=== PATIENT | male | born 1970 | race Caucasian/White ===

== ENCOUNTER 2021-03-18 13:18 | Outpatient (REF) | payer BC, SELFPAY ==
[2021-03-18 18:45] LABS: HGB 14.3 g/dL (13.5-17.5); MCH 28.4 pg (27.0-33.0); MCHC 32.5 % (32.0-36.0); MCV 87.3 fL (80-95); MPV 10.8 fL (8.0-11.0); Platelet Count 211 10^3/uL (130-400); RBC 5.04 10^6/uL (4.36-5.78); RDW-SD 41.4 fL; WBC 5.87 10^3/uL (4.4-10.8)
[2021-03-18 19:00] LABS: ALT 50 U/L (16-63); AST 19 U/L (15-37); Albumin 3.9 g/dL (3.4-5.0); Alkaline Phosphatase 77 U/L (46-116); BUN 20 mg/dL (7-18); Bilirubin, Total 0.5 mg/dL (0.2-1.0); CREATININE 1.1 mg/dL (0.70-1.30); Calcium 8.8 mg/dL (8.5-10.1); Calculated LDL 129 mg/dL (<100); Chloride 106 mmol/L (98-107); Cholesterol 211 mg/dL (<200); Glucose 122 mg/dL (74-106); HDL Cholesterol 50 mg/dL (40-60); Potassium 3.9 mmol/L (3.5-5.1); Sodium 141 mmol/L (136-145); TSH (W/Ref FT4) 1.27 uIU/mL (0.36-3.74); Total Protein 6.9 g/dL (6.4-8.2); Triglyceride 161 mg/dL (<150)
[2021-03-21 10:00] LABS: Hepatitis C Ab w Rflx HCV PCR Negative (Negative)
[2021-03-21 10:24] LABS: HIV-1/2 Ag & Ab Screen Negative (Negative)
[2021-03-21 15:36] LABS: Hemoglobin A1C 5.5 % (<5.7)
== END 2021-03-18 13:19 | disposition home or self-care (01) ==
LOC: NCHCN 13:18
PROVIDERS: PCP Family Medicine; Visit Provider Family Medicine
DX: Z00.00 Encounter for general adult medical examination without abnormal findings (principal); R63.5 Abnormal weight gain; R03.0 Elevated blood-pressure reading, without diagnosis of hypertension; M72.2 Plantar fascial fibromatosis; E66.9 Obesity, unspecified; Z11.4 Encounter for screening for human immunodeficiency virus [HIV]; Z11.59 Encounter for screening for other viral diseases
CPT/HCPCS: 80053; 80061; 85027; 86803; 87389; 83036; 84443

== ENCOUNTER 2022-09-28 09:10 | Day surgery (SDC) | payer BC, SELFPAY ==
--- NOTE | 2022-09-27 20:34 | W.PM.DSUDISC ---
Date of service: 09/28/22 Time of Service: 11:17 Discharge Plan Disposition Patient Disposition: Home Condition: Good Discharge Details Reason For Visit: Screening colonoscopy Attending Provider: Cory Jorgensen Primary Care Provider: Viola Boggs Home Meds and New Rx's Prescriptions: Discontinued polyethylene glycol 3350 17 gram/dose powder 238 g PO ONCE Qty: 238 0RF Rx Instructions: take per colonoscopy instructions bisacodyl [Dulcolax (bisacodyl)] 5 mg tablet,delayed release (DR/EC) 5 mg PO ONCE Qty: 4 0RF Rx Instructions: take per colonoscopy instructions No Action No Known Home Meds Discharge Instructions Instructions: Colorectal Polyps (DC) Additional Instructions: 1. If tolerated, consume a soft, low fiber diet for 1-2 days. 2. Do not drive, drink alcohol, operate machinery, make critical decisions, or do activities that require coordination or balance for 24 hours. 3. Because air was put into your colon during the procedure, expelling air from your rectum (passing gas or farting) is normal. 4. You may not have a bowel movement for 1-3 days because of the colonoscopy prep. This is normal. 5. Go directly to the emergency room if you notice any of the following: Develop chills (warm to touch), or if you have a thermometer and your temperature is above 101 Difficulty breathing or difficultly swallowing Persistent vomiting Severe abdominal pain, other than gas cramps Severe chest pain Black, tarry stools Any bleeding ? exceeding one tablespoon 6. Call your physician if the site where your intravenous was started becomes red, swollen, painful, and warm to touch. 7. Your physician has reviewed your pre-procedure medications. Please continue to take those medications as previously ordered. You will be given specific information/education regarding any changes to your medications before leaving. Activity:: Activity as Tolerated Diet:: As Tolerated Discharge Orders Discharge Orders: Discharge Order (Routine); Ordered 09/27/22 Ordered By: Cory Jorgensen DS: Diagnosis Discharge Diagnosis (1) Cecal polyp: Status: Acute Asessment and Plan: I will contact you with the pathology report of the biopsy once it is available.
--- NOTE | 2022-09-27 20:35 | W.COLOREPORT ---
Date of service: 09/28/22 Time of Service: 11:18 Colonoscopy Report Date of procedure: 09/28/22 Pre-op diagnosis general: Screening colonoscopy Post-op diagnosis procedure note: other (Cecal polyp) Procedure: colonoscopy Surgeon: Cory Jorgensen Anesthesia Type: General:No Airway Estimated blood loss (mL): 10 Pathology: other (Cecal polyp) Complications: None Disposition: same day Indications: Jeffery is a 52-year-old male undergoing his first screening colonoscopy Prep: Miralax/Dulcolax Procedure Start Time: 10:48 Procedure End Time: 11:07 Retraction Time: 9 Findings: 1 singular cecal polyp Procedure Description: After the induction of monitored anesthetic care, and with the patient in left lateral decubitus position, I began by performing an external anorectal exam.? Perineum and skin were normal, as was the anal verge.? There was no evidence of external hemorrhoids.? Next, I performed a digital rectal exam.? I did not appreciate any abnormal findings.? Next, I advanced a colonoscope into the rectal vault.? I performed retroflexion.? This was normal.? Using insufflation, I then advanced the colonoscope beyond the rectal folds and into the sigmoid colon before advancing towards the cecum.? The quality of the prep was excellent.? The scope was noted to be in the cecum by identification of the ileocecal valve and appendiceal orifice.? Several centimeters distal to the ileocecal valve, I identified a 0.25 cm polyp. ?It appeared sessile in character. ?I was able to remove this with a cold forcep polypectomy. ?I examined the site, and there was minimal bleeding. ?Once this was completed, I continued to withdraw the scope and examine the remainder of the colonic mucosa. I then began withdrawing the colonoscope using repeated irrigation as necessary for full evaluation of the colonic mucosa. ?Once the scope was withdrawn to the level of the rectum, great care was taken to examine portions of the rectal folds.? Finally, the scope was withdrawn and the patient was brought to the same-day surgery recovery unit as the anesthetic wore off. ?The findings and instructions were shared with the patient prior to discharge.
[2022-09-28 09:48] VITALS: BP 115/93; PULSE 98; RESP 18; TEMP 36.4; O2SAT 99
[2022-09-28] MEDS: Lactated Ringers 1,000 ML 80 ML IV (10:25)
--- NOTE | 2022-09-28 10:33 | W.ANESPRE ---
General Info Date of Service Date Performed: 09/28/22 Height: 6 ft Weight: 107.9 kg Body Mass Index (BMI): 32.2 Surgical Procedure: Operation Date: 09/28/22 10:35 Proposed Procedure Side Surgeon rossi Jorgensen MD Meds Allergies and Home Medications Allergies Allergy/AdvReac Type Severity Reaction Status Date / Time No Known Allergies Allergy Verified 09/28/22 09:45 Home Medication Medication Instructions Recorded Unknown [No Known Home Meds] 09/28/22 Current Visit Medications: Current Medications Generic Name Dose Route Start Last Admin Trade Name Freq PRN Reason Stop Dose Admin Hyoscyamine Sulfate 0.125 mg 09/27/22 20:36 Hyoscyamine 0.125 Mg Sl/Oral/Chew SL DIRECTED PRN Ringer's Solution 1,000 mls @ 80 mls/hr 09/28/22 06:00 09/28/22 10:25 IV 10/27/22 23:59 80 mls/hr INFUSION MILEY Administration IV Miscellaneous Supplies 1 each 09/28/22 06:00 Iv Access IV 10/27/22 23:59 DIRECTED MILEY Ondansetron HCl 4 mg 09/27/22 20:36 Ondansetron 4 Mg/2 Ml Vial IVP Q4H PRN PRN Nausea / Vomiting Sodium Chloride 0 ml 09/28/22 06:00 Normal Saline Flush 10 Ml Syr IV 10/27/22 23:59 PRN PRN Sodium Chloride 0 ml 09/28/22 06:00 Normal Saline 10 Ml Vial IJ 10/27/22 23:59 DIRECTED PRN Sterile Water 0 ml 09/28/22 06:00 Water,Injection,Sterile 10 Ml Vial IJ 10/27/22 23:59 DIRECTED PRN PFSH Active Problems Active Problems: Problem Status Onset Code Screening for colon cancer Z12.11 Benign essential hypertension I10 Obesity E66.9 MOHINI (obstructive sleep apnea) G47.33 Medical History Medical History Right shoulder pain Surgical History Surgical History History of tonsillectomy Tobacco Smoking/Tobacco Use Status: Never Alcohol Alcohol Intake: current Alcohol intake frequency: a few times a month Substance Use Substance use type: does not use Vital Signs and Lab Results Vital Signs Most Recent Vital Signs in EMR: Most Recent Vital Signs Temp Pulse Resp BP Pulse Ox 36.4 C L 98 H 18 115/93 H 99 09/28/22 09:48 09/28/22 09:48 09/28/22 09:48 09/28/22 09:48 09/28/22 09:48 Lab Results Blood Type / Crossmatch: No Data to Display Complete Blood Count: No Data to Display Complete Metabolic Panel: No Data to Display Liver Function Panel: No Data to Display Coagulation Panel: No Data to Display Cardiac Panel: No Data to Display Arterial Blood Gas: No Data to Display Venous Blood Gas: No Data to Display Pancreas Panel: No Data to Display Thyroid Panel: No Data to Display Infectious Disease: No Data to Display Blood Cultures: No Data to Display Toxicology Panel: No Data to Display Anesthesia Assessment and Plan Anesthesia History Personal History: No History of Anesthesia Complications Family History: No Family History of Anesthesia Complications Exercise Tolerance Exercise Tolerance: Metabolic Equivalents>4 Pertinent Negatives Pertinent Negatives: No Symptoms of GERD, No Major Cardiovascular Symptoms or Complaints, No Major Pulmonary Symptoms or Complaints and No History of CVA/TIA Cardiac & Pulmonary Exam Cardiac Exam: Normal S1/S2 Heart Sounds Pulmonary Exam: Clear Bilateral Breath Sounds Implantable Cardiac Device Does patient have a Pacemaker or an ICD?: No Airway Exam Known Difficult Airway: No Mallampati Class: 2 Mouth Opening: Normal (> 3cm) Thyromental Distance: Greater than 3 cm Neck Range of Motion: Full ROM Neck Circumference: Normal Teeth Condition: Normal Dentition ASA Classification ASA Score: ASA 2 Emergency Case?: No NPO Status NPO Status: NPO Clears >2 hours, Solids >8 hours Anesthesia Plan Resuscitation Status: Full Code Anesthesia Technique: General Anesthesia Airway Planned: Natural Airway Monitors Used: Standard Monitors
[2022-09-28 10:35] VITALS: BMI 32.2
--- NOTE | 2022-09-28 10:58 | BOWEL_PTH ---
PATIENT: Jeffery Stephenson LOC: [facility] U#:[id number] AGE/SX: 52/M ROOM: RE09/28/[address]: Cory Jorgensen MD : 1970 BED: DIS: 09/28/2022 SPEC #: [id number] RECD: 09/28/22 12:22 STATUS: CHRISTAL REQ #: [id number] ROBY: 09/28/22 10:[address]: Cory Jorgensen DEPT: Surgical Specimen RECD BY: Nicolasa Rutledge ENTERED: 09/28/22 12:22 SP TYPE: Bowel OTHR DR: Viola Boggs Tissues: 1 - BIOPSY BOWEL Procedures: GROSS AND MICRO LEVEL 4 Comments: [id number]
[2022-09-28 11:13] VITALS: BP 117/90; PULSE 75; RESP 16; TEMP 36.2; O2SAT 96
[2022-09-28 11:39] VITALS: BP 123/97; PULSE 72; RESP 68; TEMP 36.4; O2SAT 99
--- NOTE | 2022-09-28 11:56 | W.ANESPOSTOP ---
Postoperative Evaluation Date, Time and Location Date Performed: 09/28/22 Time Performed: 11:56 Patient Location: Day Surgery Unit Vital Signs Most Recent Imported Vital Signs: Most Recent Vital Signs Temp Pulse Resp BP Pulse Ox 36.4 C L 72 68 H 123/97 H 99 09/28/22 11:39 09/28/22 11:39 09/28/22 11:39 09/28/22 11:39 09/28/22 11:39 Pain Score Most Recent Pain Score: Most Recent Pain Score Pain Level 0 09/28/22 11:39 Assessment Mental Status: Awake (Alert & Oriented to Patient Baseline) Airway and Respiratory Function: Patent airway with normal (patient baseline) respiratory exam Cardiovascular Function: Hemodynamically Stable Hydration Status: Adequately Hydrated Nausea & Vomiting: No Nausea or Vomiting Pain: Pt. Denies Any Pain Peripheral Nerve Block: Patient did not receive a nerve block Postoperative Comments:: Seen earlier and doing well
== END 2022-09-28 12:00 | disposition home or self-care (01) ==
PROVIDERS: PCP Family Medicine; Visit Provider Surgery
PROC: 0DJD8ZZ Inspection of Lower Intestinal Tract, Via Natural or Artificial Opening Endoscopic (ICD-10-PCS; CPT 45378; principal; 2022-09-28 10:30)
DX: Z12.11 Encounter for screening for malignant neoplasm of colon (principal); K63.5 Polyp of colon
CPT/HCPCS: 45380; 88305

== ENCOUNTER 2024-05-05 11:23 | Outpatient (REF) | payer BC, SELFPAY ==
[2024-05-05 19:21] LABS: Hemoglobin A1C 5.5 % (<5.7)
[2024-05-05 19:26] LABS: ALT 35 U/L (16-63); AST 18 U/L (15-37); Alkaline Phosphatase 69 U/L (46-116); Anion Gap 10.8 mmol/L (3-11); BUN 17 mg/dL (7-18); Bilirubin, Total 0.55 mg/dL (0.2-1.0); CO2 25.2 mmol/L (21.0-32.0); Calcium 8.8 mg/dL (8.5-10.1); Chloride 107 mmol/L (98-107); Glucose 97 mg/dL (74-106); Sodium 143 mmol/L (136-145); Total Protein 6.7 g/dL (6.4-8.2)
== END 2024-05-05 11:24 | disposition home or self-care (01) ==
LOC: NCHCN 11:23
PROVIDERS: PCP Family Medicine; Visit Provider Family Medicine
DX: I10 Essential (primary) hypertension (principal); Z13.1 Encounter for screening for diabetes mellitus
CPT/HCPCS: 80053; 83036

== ENCOUNTER 2024-05-23 15:53 | Outpatient (REF) | payer BC, SELFPAY ==
--- NOTE | 2024-05-23 09:30 | SKI_PTH ---
PATIENT: Jeffery Stephenson LOC: [facility] U#:[id number] AGE/SX: 53/M ROOM: RE05/23/[address]: Nacho Belle DO : 1970 BED: DIS: 05/23/2024 SPEC #: [id number] RECD: 05/26/24 12:26 STATUS: CHRISTAL REQ #: [id number] ROBY: 05/23/24 09:[address]: Nacho Belle DEPT: Surgical Specimen RECD BY: Nicolasa Rutledge ENTERED: 05/26/24 12:26 SP TYPE: SKI OTHR DR: Viola Boggs Tissues: 1 - SKIN BIOPSY(SHAVE/PUNCH) Procedures: SKIN LEVEL 4 Comments: [id number]
== END 2024-05-23 15:54 | disposition home or self-care (01) ==
LOC: LBN 15:53
PROVIDERS: PCP Family Medicine; Visit Provider Otolaryngology Otolaryngology/Facial Plastic Surgery
DX: D49.2 Neoplasm of unspecified behavior of bone, soft tissue, and skin (principal)
CPT/HCPCS: 88305